=== PATIENT | female | born 2000 | race Caucasian/White ===

== ENCOUNTER 2022-03-21 20:02 | Emergency (ER) | payer OTHER ==
[~2022-03-21] VITALS: Ht 149.9 cm; Wt 90.9 kg
[2022-03-21] MEDS ORDERED: SODIUM CHLORIDE 0.9% 1,000 ML IV ONE (21:15)
[2022-03-21 22:57] LABS: CHLORIDE 107 mEq/L (98-107)
[2022-03-21 22:58] LABS: HCG SCREEN NEGATIVE
[2022-03-21 22:59] LABS: BASOPHILS % 0.4 % (0.0-2.0); HEMATOCRIT. 48.8 % (36.0-48.0); HEMOGLOBIN. 15.6 g/dL (12.0-16.0); LYMPHOCYTES % 8.5 % (20.0-50.0); MEAN CORPUSCULAR HEMOGLOBIN 27.1 pg (28.0-32.0); MEAN CORPUSCULAR VOLUME 85.1 fL (81.0-99.0); MEAN PLATELET VOLUME 7.9 fl (7.4-10.4); MONOCYTES % 3.7 % (2.0-8.0); NEUTROPHILS % 87.4 % (40.0-76.0); PLATELET 201 x1000/uL (130-400); RED BLOOD CELL COUNT 5.74 mill/uL (4.2-5.4); RED CELL DISTRIBUTION WIDTH 14.9 % (11.6-14.6)
[2022-03-21 23:01] LABS: *AMPHETAMINES SCREEN URINE NEGATIVE (NEGATIVE); *BARBITURATES SCREEN URINE NEGATIVE (NEGATIVE); *BENZODIAZEPINES SCREEN URINE NEGATIVE (NEGATIVE); *COCAINE SCREEN URINE NEGATIVE (NEGATIVE); METHADONE URINE SCREEN NEGATIVE (NEGATIVE); OPIATES URINE SCREEN NEGATIVE (NEGATIVE); PHENCYCLIDINE URINE SCREEN NEGATIVE (NEGATIVE)
[2022-03-21 23:04] LABS: CANNABINOID URINE SCREEN PRESUMTIVE POSITIVE (NEGATIVE)
[2022-03-21 23:08] LABS: ETHANOL BLOOD < 10 mg/dL
[2022-03-22 02:47] VITALS: BP 116/73
== END 2022-03-22 03:17 | disposition home or self-care (01) ==
LOC: ER 20:02
DX: T40.711A Poisoning by cannabis, accidental (unintentional), initial encounter (principal); R42 Dizziness and giddiness; F12.929 Cannabis use, unspecified with intoxication, unspecified; R00.0 Tachycardia, unspecified; R03.0 Elevated blood-pressure reading, without diagnosis of hypertension; H54.7 Unspecified visual loss; Y92.89 Other specified places as the place of occurrence of the external cause
CPT/HCPCS: 36415; 80053; 80305; 80320; 81025; 84703; 85025; 96360; 99285; J7030; G0480